=== PATIENT | female | born 1990 | race Caucasian/White ===

== ENCOUNTER 2017-07-12 17:30 | Emergency (ER) | payer SELFPAY ==
[2017-07-12 17:49] VITALS: BP 114/74; TEMP 100.3; O2SAT 99
[2017-07-12] MEDS ORDERED: ACETAMINOPHEN-CAFF-BUTALBITAL 1 EA TAB PO ONE (17:58)
[2017-07-12] MEDS ORDERED: predniSONE 20 MG TAB PO ONE (17:58)
[2017-07-12] MEDS ORDERED: CLINDAMYCIN HCL CAP 150 MG CAP PO ONE (17:58)
--- NOTE | 2017-07-12 18:01 | ED.PDOC ---
History of Present Illness - General Chief Complaint: Dental/Mouth Stated Complaint: Left upper jaw swelling Time Seen by Provider: 07/12/17 17:39 Source: patient Exam Limitations: no limitations - History of Present Illness Initial Comments: he patient is a 26-year-old female presenting to the emergency room secondary to what appears to be a dental root infection of the first molar left upper. She has had some swelling and pain present for the last 3 days. She does have a low-grade fever. She does report that she is 3 months . No other new issues. No nausea or vomiting. Timing/Duration: unsure Severity: moderate Improving Factors: nothing Worsening Factors: nothing Associated Symptoms: denies symptoms Allergies/Adverse Reactions: Allergies Ibuprofen Adverse Reaction (Verified 07/12/17 17:49) ulcers Home Medications: Ambulatory Orders Obetcrxcitepw-Msyn-Qkxsohfjdz [Fioricet] 1 ea PO Q8H PRN #21 tab 07/12/17 Clindamycin HCl 300 mg PO Q8H #20 cap 07/12/17 Review of Systems - Review of Systems Constitutional: States: malaise EENTM: States: see HPI Respiratory: States: no symptoms reported Cardiology: States: no symptoms reported Gastrointestinal/Abdominal: States: no symptoms reported Genitourinary: States: no symptoms reported Musculoskeletal: States: no symptoms reported Skin: States: no symptoms reported Neurological: States: no symptoms reported Endocrine: States: no symptoms reported All other Systems: No Change from Baseline Past Medical History (General) - Patient Medical History Hx Congestive Heart Failure: No Hx Diabetes: No Hx Renal Disease: No - Social History Hx Substance Use: No - Female History Hx Last Menstrual Period: 12/20/13 Expected Date of Delivery:: 09/26/14 Family Medical History - Family History Father Living Status: Hx Family Diabetes: Yes Hx Family;Other: with swine flu Mother Age (years): 46 Living Status: Still Living Hx Family Asthma: Yes Hx Cardiac Disease: Yes Hx Family Diabetes: Yes Physical Exam - Physical Exam General Appearance: Alert, No apparent distress Eye Exam: bilateral normal Ears, Nose, Throat: normal ENT inspection, normal pharynx Neck: full range of motion Respiratory: lungs clear, normal breath sounds, no respiratory distress, no accessory muscle use Cardiovascular/Chest: normal peripheral pulses, regular rate, rhythm, no edema Peripheral Pulses: radial,right: 2+, radial,left: 2+ Gastrointestinal/Abdominal: soft Rectal Exam: deferred Back Exam: normal inspection Extremity: normal range of motion, no pedal edema, normal capillary refill 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 She was given a dose of prednisone, clindamycin and Fioricet here today. She'll be written for Fioricet for pain control as needed and clindamycin 3 times daily for the next 7 days for the dental root infection. She needs to take these medications with food to prevent nausea. She needs to follow up with a dentist for definitive care. 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 ER warnings were given for any significant worsening. Departure - Departure Clinical Impression: Dental caries Disposition: Discharge to Home or Self Care Condition: Fair Departure Forms: ED Discharge - Pt. Copy, Patient Portal Self Enrollment Instructions: DI for Dental Pain Diet: regular diet Activity: increase activity as tolerated Referrals: Larry Pagan MD [Primary Care Provider] - 1-5 Days Prescriptions: Bjcimboswpdkk-Habr-Surepsxdfz [Fioricet] 1 ea PO Q8H PRN #21 tab PRN Reason: Pain Clindamycin HCl 300 mg PO Q8H #20 cap Home Medications: Ambulatory Orders Sxmgopigoouue-Oqkh-Lytrjsodwp [Fioricet] 1 ea PO Q8H PRN #21 tab 07/12/17 Clindamycin HCl 300 mg PO Q8H #20 cap 07/12/17 Additional Instructions: the patient is a 26-year-old female presenting to the emergency room with what appears to be a dental root infection. She was given a dose of prednisone, clindamycin and Fioricet here today. She'll be written for Fioricet for pain control as needed and clindamycin 3 times daily for the next 7 days for the dental root infection. She needs to take these medications with food to prevent nausea. She needs to follow up with a dentist for definitive care. 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 ER warnings were given for any significant worsening.
== END 2017-07-12 18:15 | disposition home or self-care (01) ==
LOC: ER 17:30
DX: O99.611 Diseases of the digestive system complicating pregnancy, first trimester (principal); K02.9 Dental caries, unspecified; Z3A.00 Weeks of gestation of pregnancy not specified